=== PATIENT | female | born 1940 | race Caucasian/White ===

== ENCOUNTER 2017-09-20 18:50 | Emergency (ER) | payer OTHER ==
[~2017-09-20] VITALS: Ht 162.6 cm; Wt 69.0 kg
[~2017-09-20 18:50] MED LIST: ACTONEL35 MG PO; CALCIUM 600 + VIT D PO; CALCIUM500 M4 PO; CELEBREX200 MG PO; DAILY VITAMIN1 EAC8 PO; DILAUDID2 MG PO; FOLIC ACID1 MG PO; Flexeril PO; Folvite PO; HYDROCHLOROTHIA50 MG PO; Hydrodiuril,Oretic,E PO; K-TAB10 MEQ PO; KEFLEX500 MG PO; LOVASTATIN40 MG PO; METHOTREXATE2.5 MG PO; MICRO-K10 ME1 PO; Micro-K,K-Tab,K-Dur, PO; NABUMETONE750 MG PO; OMEPRAZOLE20 MG PO; ONE-A-DAY WOME1 EAC1 PO; PERCOCET 5/31 TABLET PO; PREDNISONE1 MG PO; PriLOSEC PO; Relafen PO; ULTRAM50 MG PO; [UNRECOGNIZED DRUG - CODE] PO
[2017-09-20 19:46] LABS: APPEARANCE CLEAR ((CLEAR)); BILIRUBIN NEGATIVE; BLOOD NEGATIVE; COLOR YELLOW ((YELLOW)); GLUCOSE (STRIP) NEGATIVE; KETONES 5; LEUKOCYTES TRACE; NITRITE NEGATIVE; PROTEIN (STRIP) 30
[2017-09-20 19:54] LABS: BACTERIA RARE /HPF; EPITHELIAL CELLS RARE /HPF; MUCUS NONE SEEN /LPF; UCUL ADDED? YES
[2017-09-20 20:04] LABS: BASOPHIL (%) 0.1 % (0-1); EOSINOPHIL (%) 1.4 % (0-5); EOSINOPHIL COUNT 0.1 K/uL (0-0.3); HEMATOCRIT 36.1 % (36.0-46.0); HEMOGLOBIN 12.5 G/DL (11.9-15.5); IMMATURE GRANULOCYTE (%) 0.2 % (0.0-0.7); LYMPHOCYTE COUNT 0.6 K/uL (1.0-2.8); MCH 32.1 PG (29.0-34.0); MCHC 34.6 G/DL (30.0-36.0); MCV 92.6 FL (83-99); MONOCYTE (%) 8.1 % (3-12); MONOCYTE COUNT 0.7 K/uL (0-0.8); NEUTROPHIL (%) 83.2 % (45-76); NEUTROPHIL COUNT 7.2 K/uL (1.8-6.4); PLATELET COUNT 263 K/uL (156-360); RBC DIS.WIDTH-CV 11.9 % (11.8-14.6); WHITE BLOOD COUNT 8.7 K/uL (4.1-10.2)
[2017-09-20 20:11] LABS: CHLORIDE 108 mEq/L (99-109)
[2017-09-20 20:12] LABS: SODIUM 143 mEq/L (136-147)
[2017-09-20 20:14] LABS: GLUCOSE 95 mg/dL (70-99); TOTAL PROTEIN 7.2 g/dL (6.4-8.3)
[2017-09-20 20:16] LABS: TOTAL BILIRUBIN 0.7 mg/dL (0.0-1.0)
[2017-09-20 20:17] LABS: ALKALINE PHOSPHATASE 59 IU/L (3-129); CREATININE 0.8 mg/dL (0.6-1.3); GFR ESTIMATE (CALCULATED) > 59 mL/min/
[2017-09-20 20:19] LABS: AST (GOT) 21 IU/L (2-34); UREA NITROGEN (BUN) 15 mg/dL (9-23)
[2017-09-20 20:20] LABS: ALT (GPT) 17 IU/L (3-49)
[2017-09-20] MEDS ORDERED: ULTRAM50 MG PO (22:50)
[2017-09-20 23:10] VITALS: BP 155/86
== END 2017-09-20 23:00 | disposition home or self-care (01) ==
LOC: EME → EDBD 18:50 → EME 23:00
PROVIDERS: Emergency Medicine
DX: M54.5 Low back pain (principal); R35.0 Frequency of micturition; K21.9 Gastro-esophageal reflux disease without esophagitis; I10 Essential (primary) hypertension; E78.5 Hyperlipidemia, unspecified
CPT/HCPCS: 72132; 74177; 80053; 81003; 83605; 85025; 87086; 99281; 99285; J7040

== ENCOUNTER 2017-10-23 20:11 | Emergency (ER) | payer OTHER ==
[~2017-10-23] VITALS: Ht 162.6 cm; Wt 68.0 kg
[2017-10-23 20:50] VITALS: BP 167/112
== END 2017-10-23 21:08 | disposition home or self-care (01) ==
LOC: EXP 20:11 → EME 20:11 → EXP 21:08
DX: H11.32 Conjunctival hemorrhage, left eye (principal); W22.8XXA Striking against or struck by other objects, initial encounter; K21.9 Gastro-esophageal reflux disease without esophagitis; E78.5 Hyperlipidemia, unspecified; M19.90 Unspecified osteoarthritis, unspecified site; Z86.69 Personal history of other diseases of the nervous system and sense organs; Z98.890 Other specified postprocedural states; Z88.8 Allergy status to other drugs, medicaments and biological substances
CPT/HCPCS: 99281; 99284